=== PATIENT | female | born 1995 | race American Indian/Alaskan Native ===

== ENCOUNTER 2016-12-01 11:08 | Emergency (ER) | payer SELFPAY ==
[2016-12-01 12:49] LABS: Bilirubin,Urine NEG (Negative); Blood,Urine NEG (Negative); Ketones,Urine TR mg/dL (Negative); Leukocyte Esterase,Urine NEG (Negative); Mucus,Urine FEW /HPF; Nitrite,Urine NEG (Negative); WBC,Urine < 1.0 /HPF (0.0-6.0)
--- NOTE | 2016-12-01 17:46 | Emergency Department Report ---
HPI - General Chief Complaint: Abdominal Pain Time Seen by Provider: 12/01/16 17:25 - HPI HPI: This is a 21-year-old Afro-Tajik female who presents to the emergency department from home with complaints of some nausea, but is worse in the morning , along with some "spitting." She denies actually vomiting but says "spitting" is what happens when you try to vomit but not much comes up. Patient had a history of some right lower quadrant abdominal pain last week but says that it resolved on its own and currently she denies any discomfort. She has a primary care doctor, Dr. parsons, but has been unable to see them due to insurance issues. No recent travel or sick contacts at home. Her last menstrual was 11/05. She denies any dysuria, vaginal bleeding, vaginal discharge, back pain, fever. She is not taken anything for symptoms prior to presentation. ED Past Medical Hx - Past Medical History Previous Medical History?: No - Surgical History Past Surgical History?: No - Social History Smoking Status: Current Some Day Smoker Substance Use Type: Marijuana - Medications Home Medications: Home Medications Medication Instructions Recorded Confirmed Last Taken Type No Known Home Medications [No 12/01/16 12/01/16 Unknown History Reported Home Medications] ED Review of Systems ROS: Stated complaint: ABD PAIN Other details as noted in HPI Comment: All other systems reviewed and negative Constitutional: denies: chills, fever Eyes: denies: eye pain, eye discharge, vision change ENT: denies: ear pain, throat pain Respiratory: denies: cough, shortness of breath, wheezing Cardiovascular: denies: chest pain, palpitations Gastrointestinal: nausea, vomiting Genitourinary: denies: urgency, dysuria, discharge Musculoskeletal: denies: back pain, joint swelling, arthralgia Skin: denies: rash, lesions Neurological: denies: headache, weakness, paresthesias Physical Exam - Physical Exam Vital Signs: Vital Signs 12/01/16 11:20 Temperature 98.4 F Pulse Rate 67 Respiratory 16 Rate Blood Pressure 103/69 O2 Sat by Pulse 100 Oximetry Physical Exam: GENERAL: The patient is well-developed well-nourished. HEENT: Normocephalic. Atraumatic. Extraocular motions are intact. Patient has moist mucous membranes. Pupils equal reactive to light bilaterally. NECK: Supple. Trachea is midline. CHEST/LUNGS: Clear to auscultation. There is no respiratory distress noted. HEART/CARDIOVASCULAR: Regular. There is no tachycardia. There is no gallop rub or murmur. ABDOMEN: Abdomen is soft, nontender. No guarding rebound tenderness. Patient has normal bowel sounds. There is no abdominal distention. SKIN: Warm and dry. NEURO: The patient is awake, alert, and oriented. The patient is cooperative. The patient has no focal neurologic deficits. The patient has normal speech. MUSCULOSKELETAL: There is no tenderness or deformity. There is no limitation range of motion. There is no evidence of acute injury. ED Course Vital Signs 12/01/16 11:20 Temperature 98.4 F Pulse Rate 67 Respiratory 16 Rate Blood Pressure 103/69 O2 Sat by Pulse 100 Oximetry ED Medical Decision Making - Lab Data Result diagrams: 12/01/16 18:15 12/01/16 18:15 - Medical Decision Making 21-year-old female presents emergency Department with a 2 day history of some nausea with some spitting and/or vomiting in the morning. Just complains of a right lower quadrant abdominal pain that occurred 1 week ago but stopped without any intervention and has not continued. Patient's vital signs are stable throughout her ED course. Patient is basically symptomatically then complaining of a "head cold." Patient's labs are unremarkable including no signs of leukocytosis, electrolyte abnormalities, renal insufficiency. She has normal belly labs including LFTs, lipase and bilirubin. Urinalysis does not show any urinary tract infection and the patient is not . She'll be discharged home to follow-up with her primary care doctor and will return to the ER with any worsening of her symptoms or any acute distress. - Differential Diagnosis , UTI, viral syndrome, food poisoning, colitis, gastritis Critical Care Time: No Critical care attestation.: If time is entered above; I have spent that time in minutes in the direct care of this critically ill patient, excluding procedure time. ED Disposition Clinical Impression: Nausea Disposition: DISCHARGED TO HOME OR SELFCARE Is pt being admited?: No Condition: Stable Instructions: Abdominal Pain (ED), Acute Nausea and Vomiting (ED) Additional Instructions: Please follow-up with your primary care doctor the next few days. Return to the emergency department with any worsening of symptoms or any acute distress. Referrals: PRIMARY CARE, [Primary Care Provider] - 3-5 Days Time of Disposition: 18:58
[2016-12-01 18:37] LABS: Basophils % (Auto) 0.3 % (0.0-1.8); Hemoglobin 13.6 gm/dl (10.1-14.3); Mean Corpuscular HGB Conc 33 % (30-34); Mean Corpuscular Hemoglobin 32 pg (28-32); Mean Corpuscular Volume 95 fl (79-97); Platelet Count 210 K/mm3 (140-440); Red Blood Count 4.31 M/mm3 (3.65-5.03)
[2016-12-01 18:45] LABS: Alanine Aminotransferase 21 units/L (7-56); Albumin 4.4 g/dL (3.9-5); Albumin/Globulin Ratio 1.4 %; Alkaline Phosphatase 70 units/L (35-129); Anion Gap 18 mmol/L; BUN/Creatinine Ratio 13.33; Bilirubin,Total 0.6 mg/dL (0.1-1.2); Blood Urea Nitrogen 8 mg/dL (7-17); Calcium 9.5 mg/dL (8.4-10.2); Carbon Dioxide 25 mmol/L (22-30); Chloride 97.8 mmol/L (98-107); Glucose 79 mg/dL (65-100); Lipase 38 units/L (13-60); Potassium 3.8 mmol/L (3.6-5.0); Sodium 137 mmol/L (137-145); Total Protein 7.6 g/dL (6.3-8.2)
[2016-12-01 19:39] VITALS: BP 126/74
== END 2016-12-01 19:41 | disposition home or self-care (01) ==
LOC: ED 11:08
DX: R11.0 Nausea (principal); F12.90 Cannabis use, unspecified, uncomplicated; Z72.0 Tobacco use
CPT/HCPCS: 36415; 80053; 81001; 81025; 83690; 85025; 99283

== ENCOUNTER 2017-03-15 14:27 | Emergency (ER) | payer SELFPAY ==
[2017-03-15 16:14] VITALS: BP 111/68
[2017-03-15 17:27] LABS: Bacteria,Urine 4+ /HPF (Negative); Bilirubin,Urine NEG (Negative); Blood,Urine NEG (Negative); Ketones,Urine NEG (Negative); Leukocyte Esterase,Urine MOD (Negative); Mucus,Urine 2+ /HPF; Nitrite,Urine POS (Negative); Protein,Urine <15 mg/dL mg/dL (Negative); Urobilinogen,Urine < 2.0 mg/dL (<2.0)
== END 2017-03-15 19:48 | disposition left against medical advice (07) ==
LOC: ED 14:27
DX: R51 Headache (principal); R11.10 Vomiting, unspecified; Z53.21 Procedure and treatment not carried out due to patient leaving prior to being seen by health care provider
CPT/HCPCS: 81001; 81025

== ENCOUNTER 2017-03-24 09:45 | Emergency (ER) | payer SELFPAY ==
[2017-03-24 09:51] VITALS: BP 102/59
--- NOTE | 2017-03-24 10:13 | Emergency Department Report ---
ED Female HPI - General Chief complaint: Recheck/Abnormal Lab/Rx Stated complaint: CALL BACK/ABN LABS Time Seen by Provider: 03/24/17 10:10 Source: patient Mode of arrival: Ambulatory Limitations: No Limitations - History of Present Illness Initial comments: pthere callback due to abnormal labs. Labs on the patient has a urinary tract infection. Denies any nausea vomiting. Reports abdominal cramping and and dysuria. Denies any fever or chills. Pain is located to left pelvic area. No [id number] pain medication taken. MD Complaint: dysuria Onset/Timin -: days(s) Location: suprapubic (pelvic pain) Radiation: non-radiating Severity: mild Severity scale (0 -10): 3 Quality: cramping Consistency: intermittent Improves with: none Worsens with: urination Are you Now?: No Associated Symptoms: abdominal pain (L Carlos pain left lower quadrant), dysuria. denies: vaginal discharge, vaginal bleeding, nausea/vomiting, fever/chills, headaches, loss of appetite, hematuria, rash, seizure, shortness of breath, syncope, weakness - Related Data Sexually active: Yes Previous Rx's Medication Instructions Recorded Last Taken Type Nitrofurantoin Garfield/M-Cryst 100 mg PO Q12HR #14 capsule 03/24/17 Unknown Rx [Macrobid CAP] Allergies Allergy/AdvReac Type Severity Reaction Status Date / Time No Known Allergies Allergy Verified 03/15/17 16:09 ED Review of Systems ROS: Stated complaint: CALL BACK/ABN LABS Other details as noted in HPI Comment: All other systems reviewed and negative Constitutional: no symptoms reported Respiratory: no symptoms reported Cardiovascular: denies: chest pain, palpitations, edema, syncope Gastrointestinal: abdominal pain. denies: nausea, vomiting, diarrhea (pelvic pain) Genitourinary: dysuria, abnormal menses (last menstrual cycle was 02/06/2017). denies: urgency, frequency, hematuria, discharge Musculoskeletal: denies: back pain, arthralgia Skin: denies: rash Neurological: denies: headache, weakness, numbness, paresthesias, confusion, abnormal gait, vertigo ED Past Medical Hx - Past Medical History Previous Medical History?: No - Surgical History Past Surgical History?: No - Family History Family history: no significant - Social History Smoking Status: Never Smoker Substance Use Type: None - Medications Home Medications: Home Medications Medication Instructions Recorded Confirmed Last Taken Type Nitrofurantoin Garfield/M-Cryst 100 mg PO Q12HR #14 capsule 03/24/17 Unknown Rx [Macrobid CAP] ED Physical Exam - General Limitations: No Limitations General appearance: alert, in no apparent distress - Head Head exam: Present: atraumatic, normocephalic, normal inspection - ENT ENT exam: Present: normal exam, normal orophraynx, mucous membranes moist - Neck Neck exam: Present: normal inspection, full ROM. Absent: tenderness, meningismus, lymphadenopathy - Respiratory Respiratory exam: Present: normal lung sounds bilaterally. Absent: respiratory distress, chest wall tenderness - Cardiovascular Cardiovascular Exam: Present: regular rate, normal rhythm, normal heart sounds - GI/Abdominal GI/Abdominal exam: Present: soft, normal bowel sounds. Absent: distended, tenderness, guarding, rebound, rigid - Extremities Exam Extremities exam: Present: normal inspection, full ROM, normal capillary refill. Absent: tenderness, pedal edema, joint swelling, calf tenderness - Back Exam Back exam: Present: normal inspection, full ROM. Absent: tenderness, CVA tenderness (R), CVA tenderness (L), muscle spasm, paraspinal tenderness, vertebral tenderness, rash noted - Neurological Exam Neurological exam: Present: alert, oriented X3, normal gait, reflexes normal. Absent: motor sensory deficit - Psychiatric Psychiatric exam: Present: normal affect, normal mood - Skin Skin exam: Present: warm, dry, intact, normal color. Absent: rash ED Course Vital Signs 03/24/17 09:49 Temperature 97.5 F L Pulse Rate 66 Respiratory 16 Rate Blood Pressure 102/59 O2 Sat by Pulse 100 Oximetry - Reevaluation(s) Reevaluation #1: 03/24/17 10:16 She is stable throughout ED stay ED Medical Decision Making - Lab Data Urinalysis from 03/15/2017 show moderate leuks, positive white blood cell and positive nitrites. Urine reported is cloudy - Medical Decision Making ED course: She call back to the emergency room for treatment for UTI that was positive on 03/15/2017. Patient test is negative. He still having left pelvic pain which she described as cramping. No fever or CVA tenderness. I explained to patient that she has a urinary tract infection and will be treated with Macrobid and her test was negative. she voiced understanding the discharge diagnosis and treatment plan and discharged home with prescription for Macrobid and to take [id number] Azo for a couple days for urinary burning Critical care attestation.: If time is entered above; I have spent that time in minutes in the direct care of this critically ill patient, excluding procedure time. ED Disposition Clinical Impression: Acute cystitis without hematuria, Pelvic pain Disposition: TO HOME OR SELFCARE Is pt being admited?: No Does the pt Need Aspirin: No Condition: Stable Instructions: Urinary Tract Infection in Women (ED), Acute Abdominal Pain (ED) Additional Instructions: Please increase her fluid intake Take antibiotic as prescribed do not hold urine when he gets the urge to urinate. Since he do not have a primary care physician, please follow up with [facility]. Prescriptions: Nitrofurantoin Garfield/M-Cryst [Macrobid CAP] 100 mg PO Q12HR #14 capsule Referrals: [facility] [Outside] - 2-3 Days Forms: Work/School Release Form(ED)
== END 2017-03-24 10:40 | disposition home or self-care (01) ==
LOC: ED 09:45
DX: N30.00 Acute cystitis without hematuria (principal)
CPT/HCPCS: 99281

== ENCOUNTER 2017-08-15 08:14 | Emergency (ER) | payer OTHER ==
[2017-08-15 09:56] LABS: Basophils % (Auto) 0.4 % (0.0-1.8); Hemoglobin 14.3 gm/dl (10.1-14.3); Mean Corpuscular HGB Conc 34 % (30-34); Mean Corpuscular Hemoglobin 32 pg (28-32); Mean Corpuscular Volume 95 fl (79-97); Platelet Count 216 K/mm3 (140-440); Red Blood Count 4.42 M/mm3 (3.65-5.03); Red Cell Distribution Width 13.8 % (13.2-15.2); White Blood Count 6.5 K/mm3 (4.5-11.0)
[2017-08-15 10:19] LABS: Alanine Aminotransferase 15 units/L (7-56); Albumin 4.1 g/dL (3.9-5); Albumin/Globulin Ratio 1.1 %; Alkaline Phosphatase 64 units/L (35-129); Anion Gap 16 mmol/L; BUN/Creatinine Ratio 12; Blood Urea Nitrogen 7 mg/dL (7-17); Calcium 9.3 mg/dL (8.4-10.2); Carbon Dioxide 25 mmol/L (22-30); Chloride 101.9 mmol/L (98-107); Glucose 94 mg/dL (65-100); Lipase 44 units/L (13-60); Potassium 4.5 mmol/L (3.6-5.0); Sodium 138 mmol/L (137-145); Total Protein 7.9 g/dL (6.3-8.2)
[2017-08-15 10:29] LABS: Bilirubin,Urine NEG (Negative); Blood,Urine NEG (Negative); Ketones,Urine NEG (Negative); Leukocyte Esterase,Urine NEG (Negative); Mucus,Urine FEW /HPF; Nitrite,Urine NEG (Negative); Protein,Urine <15 mg/dL mg/dL (Negative); Urobilinogen,Urine < 2.0 mg/dL (<2.0)
[2017-08-15 10:30] LABS: WBC,Urine < 1.0 /HPF (0.0-6.0)
[2017-08-15] MEDS ORDERED: ZOFRAN ODT PO ONE (13:54)
[2017-08-15] MEDS ORDERED: MOTRIN PO ONE (13:54)
--- NOTE | 2017-08-15 14:01 | Emergency Department Report ---
HPI - General Chief Complaint: Abdominal Pain Time Seen by Provider: 08/15/17 12:12 - HPI HPI: The patient is a 21-year-old female who presents for evaluation of abdominal pain. The patient reports abdominal pain for the past 24 hours, constant since onset, is 10 out of 10 at his worse last night, improved and mild since this a.m., crampy in quality, exacerbated with retching and bowel movements. The patient reports associated nausea, nonbilious, nonbloody emesis, and multiple episodes of nonbloody loose stools. The patient denies fever, chills, night sweats, chest pain, dyspnea, blood in the stool, dark tarry stool, dysuria, hematuria, flank pain, inability to pass flatus. She shares that she has experienced multiple episodes of nausea and vomiting throughout the past year. ED Past Medical Hx - Past Medical History Previous Medical History?: Yes Additional medical history: IBS - Surgical History Past Surgical History?: Yes Additional Surgical History: Left chest I&D - Social History Smoking Status: Never Smoker Substance Use Type: None - Medications Home Medications: Home Medications Medication Instructions Recorded Confirmed Last Taken Type Nitrofurantoin Ada/M-Cryst 100 mg PO Q12HR #14 capsule 03/24/17 Unknown Rx [Macrobid CAP] Ibuprofen [Motrin] 800 mg PO Q8HR PRN #15 tablet 08/15/17 Unknown Rx Omeprazole Magnesium [PriLOSEC Otc] 20 mg PO QDAY #14 tablet. 08/15/17 Unknown Rx Ondansetron [Zofran TAB] 4 mg PO Q8HR PRN #15 tablet 08/15/17 Unknown Rx ED Review of Systems ROS: Stated complaint: VOMITING,ABDOMINAL PAIN Other details as noted in HPI Constitutional: denies: fever ENT: denies: throat or neck pain Respiratory: denies: cough, shortness of breath Cardiovascular: denies: chest pain Endocrine: denies unexplained weight loss or gain Gastrointestinal: reports abdominal pain, nausea Genitourinary: denies: dysuria Musculoskeletal: denies: leg swelling Skin: denies: rash Neurological: denies: headache Hematological/Lymphatic: denies: easy bleeding or easy bruising Psych: denies sadness or hopelessness Physical Exam - Physical Exam Vital Signs: Vital Signs 08/15/17 08/15/17 08/15/17 09:24 11:28 11:30 Temperature 98.6 F 98.3 F Pulse Rate 76 63 Respiratory 16 18 Rate Blood Pressure 113/75 101/69 108/61 O2 Sat by Pulse 100 97 Oximetry Physical Exam: General: well-nourished, well-developed, no acute distress Head: Normocephalic, atraumatic Eyes: normal sclera ENT: Mucous membranes are pink and moist Neck: trachea midline, neck supple, No neck stiffness, no cervical adenopathy Respiratory: Breath sounds equal bilaterally, no wheezing, rales, or rhonchi Cardio: S1 and S2 present, no murmurs, rubs, gallops, capillary refill is brisk Abdomen: Normoactive bowel sounds, soft abdomen, epiasric tenderness present, no rigidity, no guarding or rebound tenderness Musc: No pitting edema Skin: No rash Neuro: no facial drooping, normal speech Psych: Normal affect ED Course Vital Signs 08/15/17 08/15/17 08/15/17 09:24 11:28 11:30 Temperature 98.6 F 98.3 F Pulse Rate 76 63 Respiratory 16 18 Rate Blood Pressure 113/75 101/69 108/61 O2 Sat by Pulse 100 97 Oximetry ED Medical Decision Making - Lab Data Result diagrams: 08/15/17 09:30 08/15/17 09:30 - Medical Decision Making The patient was seen and examined by myself. The patient is placed on a personnel monitor and continuous pulse ox. On initial evaluation, the patient was found to be in no distress. Evaluation orders are placed. The patient is given by mouth pain medicine and zofran for her nausea. Lab results were non- concerning including WBC, hemoglobin, hematocrit, electrolytes, renal function, LFTs, lipase, urinalysis, and neg preg test. The patient was reevaluated and reported that their symptoms were markedly improved. The patient is stable for discharge with outpatient follow-up. The patient is given follow-up and return instructions. The patient expressed understanding and agreed with the plan. The patient is discharged in stable condition. Critical care attestation.: If time is entered above; I have spent that time in minutes in the direct care of this critically ill patient, excluding procedure time. ED Disposition Clinical Impression: Nausea and vomiting in adult, Abdominal pain, acute, epigastric Disposition: - TO HOME OR SELFCARE Is pt being admited?: No Does the pt Need Aspirin: No Condition: Stable Instructions: Abdominal Pain (ED), Gastroenteritis (ED), Gastroesophageal Reflux Disease (ED) Referrals: PRIMARY CARE,MD [Primary Care Provider] - 3-5 Days Time of Disposition: 13:55
[2017-08-15 14:10] VITALS: BP 97/44
== END 2017-08-15 14:13 | disposition home or self-care (01) ==
LOC: ED 08:14
DX: R10.13 Epigastric pain (principal); R11.2 Nausea with vomiting, unspecified
CPT/HCPCS: 36415; 80053; 81001; 83690; 85025; Q0162

== ENCOUNTER 2019-02-22 15:17 | Emergency (ER) | payer OTHER ==
--- NOTE | 2019-02-22 15:47 | Emergency Department Report ---
Blank Doc - Documentation Documentation: This is a 23-year-old female that presents with bilateral knee, left elbow, and lower back pain. This initial assessment/diagnostic orders/clinical plan/treatment(s) is/are subject to change based on patient's health status, clinical progression and re- assessment by fellow clinical providers in the ED. Further treatment and workup at subsequent clinical providers discretion. Patient/guardians urged not to elope from the ED as their condition may be serious if not clinically assessed and managed. Initial orders include: 1- Patient sent to [facility] for further evaluation and treatment 2- xrays
[2019-02-22 16:11] VITALS: BP 118/57
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
[2019-02-22] MEDS ORDERED: IBUPROFEN PO ONE (19:02)
== END 2019-02-22 19:41 | disposition home or self-care (01) ==
LOC: ED 15:17
DX: T14.8XXA Other injury of unspecified body region, initial encounter (principal); M54.5 Low back pain; M25.562 Pain in left knee; M25.561 Pain in right knee; M25.522 Pain in left elbow; G43.909 Migraine, unspecified, not intractable, without status migrainosus; Z87.19 Personal history of other diseases of the digestive system; Z98.890 Other specified postprocedural states; V49.49XA Driver injured in collision with other motor vehicles in traffic accident, initial encounter; Y93.89 Activity, other specified; Y92.410 Unspecified street and highway as the place of occurrence of the external cause; Y99.8 Other external cause status
CPT/HCPCS: 72100